=== PATIENT | female | born 1975 | race Caucasian/White ===

== ENCOUNTER → 2017-08-31 | Outpatient (CLI) | payer OTHER | END | disposition home or self-care (01) | LOC: RAD 10:15 | DX: S22.058D Other fracture of T5-T6 vertebra, subsequent encounter for fracture with routine healing (principal); M51.44 Schmorl's nodes, thoracic region; M41.85 Other forms of scoliosis, thoracolumbar region; M54.5 Low back pain; X58.XXXD Exposure to other specified factors, subsequent encounter | CPT/HCPCS: 72072; 72100 ==

== ENCOUNTER 2019-01-21 23:59 | Emergency (ER) | payer BC, OTHER ==
[~2019-01-21] VITALS: Ht 165.1 cm; Wt 51.3 kg
[~2019-01-21 23:59] MED LIST: CLON0.5T PO; CLON1TAB PO; DOCU-109 PO; DULO60CA6 PO; ESTR1.25 PO; ESTR1TAB15 PO; FENT1PAT13 TD; HYDR-2765 PO; IBUP200T44 PO; LAMO25TA5 PO; LEXAPRO20 MG PO; LIDO30CR TP; MELO15TA23 PO; MOME13HF IH; OXYC10TA46 PO; OXYC1TAB22 PO; POLY17PO29 PO; TIZA2CAP PO; TIZA4TAB2 PO
[2019-01-22 00:32] VITALS: BP 104/67
--- NOTE | 2019-01-22 00:38 | PHYS DOC ---
Past Medical History Past Medical History: Anxiety, Arthritis, Depression, Migraines, Other Additional Past Medical Histor: endometriosis, chronic back pain Past Surgical History: Hysterectomy, Tonsillectomy, Other Additional Past Surgical Histo: exp lap x 8, sinus, Alcohol Use: None Drug Use: Marijuana Adult General Chief Complaint Chief Complaint: HEADACHE HPI HPI Patient is a 43 year old female who presents with chronic migraine headaches and states she had a migraine headache last week. Patient states that last week she had gotten dizzy when she stood up and she fell forward, hitting her head on a door jam but didn't lose consciousness and she didn't start vomiting. Patient states that the headache has continued but tonight at 2000 headache worsened and on the right side of her face and head she has throbbing pain and tingling. Patient states this feels worse than her usual migraine headaches. Patient states she has some light sensitivity but no nausea or vomiting at this time. Patient rates her pain a 10 out of 10 and she is very tearful. Review of Systems Review of Systems Eyes: Denies change in visual acuity, redness, or eye pain. Light sensitivity [] Neurologic: headache, tingling to right side of face, denies focal weakness or sensory changes [] All other systems were reviewed and found to be within normal limits, except as documented in this note. Current Medications Current Medications Current Medications Medications (Trade) Dose Ordered Sig/Lele Start Time Stop Time Status Last Admin Dose Admin Diphenhydramine HCl (Benadryl) 25 mg 1X ONCE 01/22/19 01:00 01/22/19 01:01 DC 01/22/19 00:49 25 MG Prochlorperazine Edisylate (Compazine) 10 mg 1X ONCE 01/22/19 01:00 01/22/19 01:01 DC 01/22/19 00:49 10 MG Sumatriptan Succinate (Imitrex) 6 mg 1X ONCE 01/22/19 02:15 01/22/19 02:16 Allergies Allergies Allergies Coded Allergies Type Severity Reaction Last Updated Verified ciprofloxacin Allergy Intermediate Rash 03/07/15 Yes codeine Allergy Intermediate Itching 03/07/15 Yes meperidine Allergy Intermediate Increases blood pressure 03/07/15 Yes Physical Exam Physical Exam Constitutional: Well developed, well nourished, no acute distress, non-toxic appearance. [] HENT: Normocephalic, atraumatic, bilateral external ears normal, oropharynx moist, no oral exudates, nose normal. [] Eyes: PERRLA, EOMI, conjunctiva normal, no discharge. [] Neck: Normal range of motion, no tenderness, supple, no stridor. [] Skin: Warm, dry, no erythema, no rash. [] Neurologic: Alert and oriented X 3, normal motor function, normal sensory function, no focal deficits noted. [] Psychologic: Affect normal, judgement normal, mood normal. [] Current Patient Data Vital Signs Vital Signs Date Time Temp Pulse Resp B/P (MAP) Pulse Ox O2 Delivery O2 Flow Rate FiO2 01/22/19 00:32 97.9 90 16 104/67 (79 98 Room Air 97.9 Lab Values Laboratory Tests Test 01/22/19 00:41 POC Urine HCG, Qualitative Hcg negative (Negative) EKG EKG [] Radiology/Procedures Radiology/Procedures [] Impressions: [facility] [address] [place], [place] [id number] IMAGING REPORT Signed PATIENT: SHERMAN LAURENT ACCOUNT: [id number] : 1975 LOCATION: ER AGE: 43 SEX: F EXAM STATUS: REG ER ORD. PHYSICIAN: SIVA REID APRN REASON: headache PROCEDURE: CT HEAD WO CONTRAST STUDY: CT head without contrast INDICATION: Headache. COMPARISON: None. TECHNIQUE: Axial CT imaging through the head without the use of intravenous contrast. Sagittal and coronal reformats were obtained. One or more of the following individualized dose reduction techniques were utilized for this examination: 1. Automated exposure control 2. Adjustment of the mA and/or kV according to patient size 3. Use of iterative reconstruction technique. FINDINGS: Jarvis-white matter differentiation is maintained. No acute intracranial hemorrhage. No mass effect, midline shift or hydrocephalus. The calvarium is intact. No layering fluid within the visualized paranasal sinuses. Partially visualized changes suggestive of bilateral maxillary antrostomy. The mastoid air cells and middle ears are normally aerated. IMPRESSION: No acute intracranial abnormality by CT. Electronically signed by: JIMMY FERRIS MD (01/22/2019 2:09 AM) [facility] [place] DICTATED and SIGNED BY: JIMMY FERRIS MD DATE: 01/22/19208 Course & Med Decision Making Course & Med Decision Making Patient rates her pain a 10 out of 10. Alert and oriented. Speaks in full clear sentences. Ambulatory with a steady gait. 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 PERRLA. 0200: Patient is sleeping upon walking into room. Patient states her headache is better but starting to come back. I have ordered Imitrex. Dragon Disclaimer Dragon Disclaimer This electronic medical record was generated, in whole or in part, using a voice recognition dictation system. NIHSS Stroke Scale NIH Stroke Scale: NIH Stroke Scale Response (Comments) Value Level of Consciousness: 0 Alert/Responsive 0 LOC Questions: 0 Answers both correctly 0 LOC Commands: 0 Performs both tasks 0 Best Gaze: 0 Normal 0 Visual: 0 No visual loss 0 Facial Palsy: 0 Normal, symmetrical 0 Motor - Left Arm 0 No drift 0 Motor - Right Arm 0 No drift 0 Motor - Left Leg 0 No drift 0 Motor: Right Leg 0 No drift 0 Limb Ataxia: 0 Absent 0 Sensory: 0 No loss 0 Best Language: 0 Normal 0 Dysathria: 0 Normal 0 Extinction and Inattention: 0 Normal 0 Total 0 Departure Departure Impression: Primary Impression: Headache Disposition: 01 HOME, SELF-CARE Condition: STABLE Referrals: MARILYN OLIVERA (PCP) Patient Instructions: Migraine Headache Additional Instructions: Follow up with your primary care physician as soon as possible. Problem Qualifiers Primary Impression: Headache Headache type: unspecified Headache chronicity pattern: acute headache Intractability: not intractable Qualified Codes: R51 - Headache SIVA REID APRN Jan 22, 2019 00:38
[2019-01-22] MEDS ORDERED: diphenhydrAMINE 50 MG/ML VIAL IM ONE (01:00)
[2019-01-22] MEDS ORDERED: PROCHLORPERAZINE 10 MG/2 ML VIAL. IM ONE (01:00)
--- NOTE | 2019-01-22 02:12 | RAD ---
STUDY: CT head without contrast INDICATION: Headache. COMPARISON: None. TECHNIQUE: Axial CT imaging through the head without the use of intravenous contrast. Sagittal and coronal reformats were obtained. One or more of the following individualized dose reduction techniques were utilized for this examination: 1. Automated exposure control 2. Adjustment of the mA and/or kV according to patient size 3. Use of iterative reconstruction technique. FINDINGS: Jarvis-white matter differentiation is maintained. No acute intracranial hemorrhage. No mass effect, midline shift or hydrocephalus. The calvarium is intact. No layering fluid within the visualized paranasal sinuses. Partially visualized changes suggestive of bilateral maxillary antrostomy. The mastoid air cells and middle ears are normally aerated. IMPRESSION: No acute intracranial abnormality by CT. Electronically signed by: JIMMY FERRIS MD (01/22/2019 2:09 AM) [facility]
[2019-01-22] MEDS ORDERED: SUMAtriptan SUCC 6 MG/0.5 ML VIAL. SQ ONE (02:15)
== END 2019-01-22 02:18 | disposition home or self-care (01) ==
LOC: ER 23:59
DX: G43.909 Migraine, unspecified, not intractable, without status migrainosus (principal); R42 Dizziness and giddiness; F41.9 Anxiety disorder, unspecified; M19.90 Unspecified osteoarthritis, unspecified site; F32.9 Major depressive disorder, single episode, unspecified; G89.29 Other chronic pain; Z90.710 Acquired absence of both cervix and uterus; Z90.89 Acquired absence of other organs; Z88.1 Allergy status to other antibiotic agents; Z88.5 Allergy status to narcotic agent; Z88.8 Allergy status to other drugs, medicaments and biological substances
CPT/HCPCS: 70450; 81025; 96372; 99284; J0780; J1200; J3030

== ENCOUNTER 2020-04-04 10:52 | Emergency (ER) | payer BC ==
[~2020-04-04] VITALS: Ht 165.1 cm; Wt 53.8 kg
[~2020-04-04 10:52] MED LIST changes: +ESTR-113 PO; -ESTR1TAB15 PO
[2020-04-04 10:56] VITALS: BP 115/74
[2020-04-04] MEDS: IV RINGERS,LACTATED 500ML 500 ML IV ONE (11:38)
[2020-04-04] MEDS: ONDANSETRON PF 4 MG/2 ML VIAL. IVP ONE (11:38)
[2020-04-04] MEDS: MORPHINE SULFATE 10 MG/ML VIAL. IV ONE (11:38)
--- NOTE | 2020-04-04 11:40 | ED.ADGEN ---
Past Medical History Past Medical History: Anxiety, Arthritis, Depression, Migraines, Pancreatitis, Other Additional Past Medical Histor: endometriosis, chronic back pain Past Surgical History: Hysterectomy, Tonsillectomy, Other Additional Past Surgical Histo: exp lap x 8, sinus, Smoking Status: Former Smoker Alcohol Use: None Drug Use: Marijuana General Adult EDM: Chief Complaint: ABDOMINAL PAIN HPI: HPI: Patient is a 44 year old female coming in for evaluation of epigastric pain. Patient has a history of pancreatitis and was hospitalized to [facility] over the summer. Patient states the pain is been getting worse over the past 10 days but the past 2 to 3 days is been difficult to tolerate. She saw her surgeon prior to arrival (sent her to the ER) who suspects she has dysfunction of the sphincter of Oddi. Had a cholecystectomy a couple of years ago. 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 Has had nausea and vomiting, has a baseline loose stools due to IBS. She denies any recent fever, cough, loss of taste or smell, or any other Covid symptoms Review of Systems: Review of Systems: Negative except for HPI Current Medications: Current Medications Medications (Trade) Dose Ordered Sig/Lele Start Time Stop Time Status Last Admin Dose Admin Diphenhydramine HCl (Benadryl) 50 mg 1X ONCE 04/04/20 14:15 04/04/20 14:16 DC 04/04/20 15:46 50 MG Haloperidol Lactate (Haldol Inj) 5 mg 1X ONCE 04/04/20 14:15 04/04/20 14:16 DC 04/04/20 15:47 5 MG Iohexol (Omnipaque 300 Mg/ml) 75 ml 1X ONCE 04/04/20 12:00 04/04/20 12:01 DC 04/04/20 12:09 75 ML Morphine Sulfate (Morphine Sulfate) 5 mg 1X ONCE 04/04/20 11:30 04/04/20 11:31 DC 04/04/20 11:38 5 MG Multi-Ingredient Mouthwash/Gargle (Gi Cocktail) 20 ml 1X ONCE 04/04/20 12:45 04/04/20 12:46 DC 04/04/20 13:12 20 ML Ondansetron HCl (Zofran) 4 mg 1X ONCE 04/04/20 11:30 04/04/20 11:31 DC 04/04/20 11:38 4 MG Ringer's Solution 500 ml @ 500 mls/hr 1X ONCE 04/04/20 11:30 04/04/20 12:29 DC 04/04/20 11:38 500 MLS/HR Allergies: Allergies: Allergies Coded Allergies Type Severity Reaction Last Updated Verified ciprofloxacin Allergy Intermediate Rash 03/07/15 Yes codeine Allergy Intermediate Itching 03/07/15 Yes meperidine Allergy Intermediate Increases blood pressure 03/07/15 Yes Physical Exam: PE: Constitutional: Well developed, well nourished, moderate distress HENT: Normocephalic, atraumatic, bilateral external ears normal, oropharynx moist, no oral exudates, nose normal. [] Eyes: PERRLA, EOMI, conjunctiva normal, no discharge. [] Neck: Normal range of motion, no tenderness, supple, no stridor. [] Cardiovascular:Heart rate regular rhythm, no murmur [] Lungs & Thorax: Bilateral breath sounds clear to auscultation [] Abdomen: Bowel sounds normal, soft, epigastric tenderness with guarding, no rebound, no tenderness in lower abdomen Skin: Warm, dry, no erythema, no rash. [] No ecchymosis Back: No tenderness, no CVA tenderness. [] Extremities: No tenderness, no cyanosis, no clubbing, ROM intact, no edema. [] Neurologic: Alert and oriented X 3, normal motor function, normal sensory function, no focal deficits noted. [] Psychologic: Affect normal, judgement normal, mood normal. [] Current Patient Data: Labs: Laboratory Tests Test 04/04/20 10:54 04/04/20 11:02 04/04/20 11:10 Urine Collection Type Unknown Urine Color Mandy Urine Clarity Clear Urine pH 6.0 (<5.0-8.0) Urine Specific Orchard >=1.030 (1.000-1.030) Urine Protein Negative mg/dL (NEG-TRACE) Urine Glucose (UA) Negative mg/dL (NEG) Urine Ketones (Stick) Negative mg/dL (NEG) Urine Blood Negative (NEG) Urine Nitrite Negative (NEG) Urine Bilirubin Small (NEG) Urine Urobilinogen Dipstick 1.0 mg/dL (0.2 mg/dL) Urine Leukocyte Esterase Negative (NEG) Urine RBC 0 /HPF (0-2) Urine WBC 0 /HPF (0-4) Urine Squamous Epithelial Cells Occ /LPF Urine Bacteria 0 /HPF (0-FEW) Urine Mucus Marked /LPF Urine Opiates Screen Pos (NEG) Urine Methadone Screen Neg (NEG) Urine Barbiturates Neg (NEG) Urine Phencyclidine Screen Neg (NEG) Urine Amphetamine/Methamphetamine Neg (NEG) Urine Benzodiazepines Screen Neg (NEG) Urine Cocaine Screen Neg (NEG) Urine Cannabinoids Screen Pos (NEG) Urine Ethyl Alcohol Neg (NEG) POC Urine HCG, Qualitative Hcg negative (Negative) White Blood Count 4.4 x10^3/uL (4.0-11.0) Red Blood Count 4.25 x10^6/uL (3.50-5.40) Hemoglobin 12.9 g/dL (12.0-15.5) Hematocrit 37.7 % (36.0-47.0) Mean Corpuscular Volume 89 fL (79-100) Mean Corpuscular Hemoglobin 30 pg (25-35) Mean Corpuscular Hemoglobin Concent 34 g/dL (31-37) Red Cell Distribution Width 13.5 % (11.5-14.5) Platelet Count 313 x10^3/uL (140-400) Neutrophils (%) (Auto) 57 % (31-73) Lymphocytes (%) (Auto) 35 % (24-48) Monocytes (%) (Auto) 6 % (0-9) Eosinophils (%) (Auto) 1 % (0-3) Basophils (%) (Auto) 1 % (0-3) Neutrophils # (Auto) 2.5 x10^3/uL (1.8-7.7) Lymphocytes # (Auto) 1.5 x10^3/uL (1.0-4.8) Monocytes # (Auto) 0.3 x10^3/uL (0.0-1.1) Eosinophils # (Auto) 0.0 x10^3/uL (0.0-0.7) Basophils # (Auto) 0.0 x10^3/uL (0.0-0.2) Sodium Level 143 mmol/L (136-145) Potassium Level 3.7 mmol/L (3.5-5.1) Chloride Level 104 mmol/L (98-107) Carbon Dioxide Level 29 mmol/L (21-32) Anion Gap 10 (6-14) Blood Urea Nitrogen 9 mg/dL (7-20) Creatinine 0.8 mg/dL (0.6-1.0) Estimated GFR (Cockcroft-Gault) 77.9 BUN/Creatinine Ratio 11 (6-20) Glucose Level 110 mg/dL (70-99) H Lactic Acid Level 1.7 mmol/L (0.4-2.0) Calcium Level 9.4 mg/dL (8.5-10.1) Total Bilirubin 0.3 mg/dL (0.2-1.0) Aspartate Amino Transferase (AST) 13 U/L (15-37) L Alanine Aminotransferase (ALT) 16 U/L (14-59) Alkaline Phosphatase 87 U/L (46-116) Troponin I Quantitative < 0.017 ng/mL (0.000-0.055) Total Protein 7.2 g/dL (6.4-8.2) Albumin 4.2 g/dL (3.4-5.0) Albumin/Globulin Ratio 1.4 (1.0-1.7) Lipase 243 U/L (73-393) Laboratory Tests 04/04/20 11:10 Laboratory Tests 04/04/20 11:10 Vital Signs: Vital Signs Date Time Temp Pulse Resp B/P (MAP) Pulse Ox O2 Delivery O2 Flow Rate FiO2 04/04/20 10:56 99.1 105 18 115/74 (88) 99 Room Air 99.1 EKG: EKG: Normal sinus rhythm, heart rate 75, no ectopy, normal intervals, normal axis, no ST elevation or depression [] Heart Score: Risk Factors: Risk Factors: DM, Current or recent (<one month) smoker, HTN, HLP, family history of CAD, obesity. Risk Scores: Score 0 - 3: 2.5% MACE over next 6 weeks - Discharge Home Score 4 - 6: 20.3% MACE over next 6 weeks - Admit for Clinical Observation Score 7 - 10: 72.7% MACE over next 6 weeks - Early Invasive Strategies Radiology/Procedures: Radiology/Procedures: Exam: CT abdomen/pelvis with intravenous contrast Indication: Pancreatitis Comparison: CT abdomen and pelvis 08/06/2015 Technique: Helical CT imaging performed of the abdomen and pelvis after the intravenous administration of 75 mL Omnipaque 300 intravenous contrast. Sagittal and coronal reformats were obtained. One or more of the following individualized dose reduction techniques were utilized for this examination: 1. Automated exposure control 2. Adjustment of the mA and/or kV according to patient size 3. Use of iterative reconstruction technique. Findings: Lower chest: Lung bases are clear. Heart is normal in size. Liver: Normal. Gallbladder/Biliary Tree: Gallbladder surgically absent. Bile ducts are normal. Pancreas: The pancreas is homogeneous in appearance. There is no peripancreatic fluid. No pancreatic duct dilatation or calcifications. Spleen: Normal. Adrenal Glands: Normal. Kidneys/Ureters/Bladder: Normal. Reproductive Organs: The uterus is absent. No adnexal mass. Stomach, small bowel, and colon: The stomach and small bowel are normal. There are new surgical changes of the ascending colon. Mild wall thickening in the sigmoid colon and rectum, slightly improved from prior exam. Vasculature: Abdominal aorta and inferior vena cava are normal. Lymph Nodes: No lymphadenopathy. Peritoneum and retroperitoneum: No free fluid or free air. Bones: Small sclerotic focus in the right ischial tuberosity is unchanged from 2016. No acute osseous abnormality or new bone lesion. Impression: 1. No CT evidence of acute pancreatitis or other acute abnormality. 2. New surgical changes of the right colon. 3. Mild wall thickening of the sigmoid colon and rectum, similar to 2016. [] Course & Med Decision Making: Course & Med Decision Making Pertinent Labs and Imaging studies reviewed. (See chart for details) No change in symptoms with GI cocktail and morphine. UDS shows marijuana use, and patient admits to regular use of edibles. Haldol and diphenhydramine given with solution of symptoms. Counseled patient on capsaicin use, hot showers and marijuana cessation [] Dragon Disclaimer: Louann Disclaimer: This electronic medical record was generated, in whole or in part, using a voice recognition dictation system. Departure Departure Impression: Primary Impression: Cannabinoid hyperemesis syndrome Disposition: 01 DC HOME SELF CARE/HOMELESS Condition: IMPROVED Referrals: UNKNOWN PCP NAME (PCP) Additional Instructions: Discontinue cannabis use, may consider substituting CBD oil. If symptoms recur take a hot shower or apply capsaicin cream to your abdomen. ROD EARL MD Apr 04, 2020 11:40
[2020-04-04 11:53] LABS: BASO % 1 % (0-3); EOS % 1 % (0-3); HEMATOCRIT 37.7 % (36.0-47.0); HEMOGLOBIN 12.9 g/dL (12.0-15.5); LYMPH # 1.5 x10^3/uL (1.0-4.8); LYMPH % 35 % (24-48); MEAN CORPUSCULAR HEMOGLOBIN 30 pg (25-35); MEAN CORPUSCULAR HGB CONC 34 g/dL (31-37); MEAN CORPUSCULAR VOLUME 89 fL (79-100); MONO # 0.3 x10^3/uL (0.0-1.1); MONO % 6 % (0-9); NEUT # 2.5 x10^3/uL (1.8-7.7); NEUT % 57 % (31-73); PLATELET COUNT 313 x10^3/uL (140-400); RED BLOOD COUNT 4.25 x10^6/uL (3.50-5.40); RED CELL DISTRIBUTION WIDTH 13.5 % (11.5-14.5); WHITE BLOOD COUNT 4.4 x10^3/uL (4.0-11.0)
[2020-04-04 11:54] LABS: BILIRUBIN,URINE SMALL (NEG); CLARITY,URINE CLEAR; COLOR,URINE AMBER; NITRITE,URINE NEGATIVE (NEG); PROTEIN,URINE NEGATIVE (NEG-TRACE)
[2020-04-04 11:56] LABS: CALCIUM 9.4 mg/dL (8.5-10.1); CREATININE 0.8 mg/dL (0.6-1.0); GFR 77.9; POTASSIUM 3.7 mmol/L (3.5-5.1)
--- NOTE | 2020-04-04 11:57 | EKG ---
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
[2020-04-04 12:03] LABS: ALBUMIN 4.2 g/dL (3.4-5.0); ALBUMIN/GLOBULIN RATIO 1.4 (1.0-1.7); TOTAL BILIRUBIN 0.3 mg/dL (0.2-1.0); TOTAL PROTEIN 7.2 g/dL (6.4-8.2)
[2020-04-04 12:09] LABS: BACTERIA,URINE 0 /HPF (0-FEW); RBC,URINE 0 /HPF (0-2); WBC,URINE 0 /HPF (0-4)
[2020-04-04] MEDS: IOHEXOL 300 MG/ML 100ML VIAL. IV ONE (12:09)
[2020-04-04 12:44] LABS: BARBITURATES NEG (NEG); BENZODIAZEPINES NEG (NEG); CANNABINOIDS POS (NEG); COCAINE NEG (NEG); METHADONE NEG (NEG); OPIATES POS (NEG); PHENCYCLIDINE NEG (NEG)
[2020-04-04 12:45] LABS: AMPHETAMINE/METHAMPHETAMINE NEG (NEG)
--- NOTE | 2020-04-04 12:51 | RAD ---
Exam: CT abdomen/pelvis with intravenous contrast Indication: Pancreatitis Comparison: CT abdomen and pelvis 08/06/2015 Technique: Helical CT imaging performed of the abdomen and pelvis after the intravenous administratio n of 75 mL Omnipaque 300 intravenous contrast. Sagittal and coronal reformats were obtained. One or more of the following individualized dose reduction techniques were utilized for this examinat ion: 1. Automated exposure control 2. Adjustment of the mA and/or kV according to patient size 3. Use of iterative reconstruction technique. Findings: Lower chest: Lung bases are clear. Heart is normal in size. Liver: Normal. Gallbladder/Biliary Tree: Gallbladder surgically absent. Bile ducts are normal. Pancreas: The pancreas is homogeneous in appearance. There is no peripancreatic fluid. No pancreatic duct dilatation or calcifications. Spleen: Normal. Adrenal Glands: Normal. Kidneys/Ureters/Bladder: Normal. Reproductive Organs: The uterus is absent. No adnexal mass. Stomach, small bowel, and colon: The stomach and small bowel are normal. There are new surgical stanley es of the ascending colon. Mild wall thickening in the sigmoid colon and rectum, slightly improved fr om prior exam. Vasculature: Abdominal aorta and inferior vena cava are normal. Lymph Nodes: No lymphadenopathy. Peritoneum and retroperitoneum: No free fluid or free air. Bones: Small sclerotic focus in the right ischial tuberosity is unchanged from 2016. No acute osseous abnormality or new bone lesion. Impression: 1. No CT evidence of acute pancreatitis or other acute abnormality. 2. New surgical changes of the right colon. 3. Mild wall thickening of the sigmoid colon and rectum, similar to 2016. Electronically signed by: Linda Torres MD (04/04/2020 1:34 PM) [id number]
[2020-04-04] MEDS: LIDO:MAALOX 1:1 20 ML SINGLE DOSE. SWSW ONE (13:12)
[2020-04-04] MEDS: diphenhydrAMINE 50 MG/ML VIAL IVP ONE (15:46)
[2020-04-04] MEDS: HALOPERIDOL LACTATE 5 MG/ML VIAL. IVP ONE (15:47)
== END 2020-04-04 17:53 | disposition home or self-care (01) ==
LOC: ER 10:52
DX: R11.2 Nausea with vomiting, unspecified (principal); F12.90 Cannabis use, unspecified, uncomplicated; R10.13 Epigastric pain; F41.9 Anxiety disorder, unspecified; M19.90 Unspecified osteoarthritis, unspecified site; F32.9 Major depressive disorder, single episode, unspecified; G43.909 Migraine, unspecified, not intractable, without status migrainosus; K86.1 Other chronic pancreatitis; G89.29 Other chronic pain; Z90.89 Acquired absence of other organs; Z90.710 Acquired absence of both cervix and uterus; Z98.890 Other specified postprocedural states; Z87.891 Personal history of nicotine dependence; Z88.1 Allergy status to other antibiotic agents; Z88.5 Allergy status to narcotic agent; Z88.8 Allergy status to other drugs, medicaments and biological substances
CPT/HCPCS: 36415; 74177; 80053; 80307; 81001; 81025; 83605; 83690; 84484; 85025; 93005; 96361; 96374; 96375; 99285; J1200; J1630; J2270; J2405; J7120; Q9967

== ENCOUNTER → 2020-04-18 | Outpatient (CLI) | payer BC ==
[2020-04-04 10:56] VITALS: BP 115/74
[~2020-04-18] MED LIST changes: +BACL10TA PO; +LAMO200T3 PO; -LIDO30CR TP; +LIDO30CR2 TP; +ONDA4TAB7 PO; +OXYC1TAB15 PO; +PANT40TA77 PO; +PREG-9 PO; +SUMA50TA3 PO
--- NOTE | 2020-04-19 09:02 | KCIC ---
MRI of the abdomen without contrast to include a MRCP 04/18/2020 CLINICAL HISTORY: Epigastric pain. Acute pancreatitis. History of cholecystectomy. TECHNIQUE: Unenhanced T2-weighted axial and coronal fat saturated T2-weighted axial, diffusion-weight ed axial and inversion phase T1-weighted axial images of the abdomen were obtained. Additionally thin section fat saturated T2-weighted coronal images of the abdomen were obtained. Multiplanar 3-D MIP r econstructed images of the biliary system were obtained for an MRCP. FINDINGS: Comparison is made to the patient's CT scan of the abdomen dated 04/04/2020. The liver, spleen, pancreas, adrenal glands and kidneys are within normal limits. The abdominal aorta tapers normally. There is no evidence of bowel obstruction. No free fluid is seen . MRCP images demonstrate nonvisualization of the gallbladder consistent with a cholecystectomy. The le ft and right hepatic ducts, common hepatic duct, cystic duct remnant, common bile duct and main pancr eatic duct are normal in caliber. No filling defect is seen. Minimal S-shaped curvature of the thoracolumbar spine is seen. IMPRESSION: Post cholecystectomy. Otherwise negative study. Electronically signed by: Michi Calles MD (04/19/2020 8:59 AM) [id number]
== END ==
LOC: KCIC MRI 10:06
PROVIDERS: ATTEND Surgery
DX: R10.13 Epigastric pain (principal); Z90.49 Acquired absence of other specified parts of digestive tract
CPT/HCPCS: 74181

== ENCOUNTER → 2020-06-22 | Outpatient (CLI) | payer BC ==
[~2020-06-22] MED LIST changes: +LIDO30CR TP; -LIDO30CR2 TP; -OXYC1TAB15 PO
== END ==
LOC: LAB 14:03
PROVIDERS: ATTEND Surgery
DX: Z01.812 Encounter for preprocedural laboratory examination (principal); K43.2 Incisional hernia without obstruction or gangrene; Z20.822 Contact with and (suspected) exposure to COVID-19
CPT/HCPCS: U0003

== ENCOUNTER 2020-06-27 06:19 | Day surgery (SDC) | payer BC ==
[~2020-06-27 06:19] MED LIST changes: +HYDROmorphone 2 MG/ML VIAL IVP PRN; +IV RINGERS,LACTATED 1000ML 1,000 ML IV SCH; +MORPHINE SULFATE 2 MG/ML VIAL. IVP PRN; +PROCHLORPERAZINE 10 MG/2 ML VIAL. IVP PRN; +fentaNYL PF VIAL 100 MCG/2 ML VIAL IVP PRN
[2020-06-27] MEDS ORDERED: BUPIVACAINE-EPI 0.25% 30 ML VIAL KIT. ONE (07:10)
[2020-06-27] MEDS ORDERED: ACETAMINOPHEN 500 MG TABLET PO ONE (07:15)
[2020-06-27] MEDS ORDERED: SCOPOLAMINE 1.5MG PATCH. TD ONE (07:15)
[2020-06-27] MEDS ORDERED: ROCURONIUM 50 MG/5 ML VIAL. ONE (07:34)
[2020-06-27] MEDS ORDERED: fentaNYL PF VIAL 250 MCG/5 ML VIAL ONE (07:34)
[2020-06-27] MEDS ORDERED: MIDAZOLAM HCL/PF 2 MG/2 ML VIAL. ONE (07:34)
--- NOTE | 2020-06-27 08:46 | PDOC4 ---
Operative Note Operative Note Date: June 272020 at 843 Preoperative diagnosis: Right lower quadrant abdominal hernia Postoperative diagnosis: Same Procedure: Robotic assisted laparoscopic ventral hernia repair with mesh Surgeon: Andrew Specimen: None Dictation: Patient is a 45-year-old female who has right lower quadrant incisional hernia from previous open appendectomy scar. Procedure of robotic assisted laparoscopic ventral hernia repair with mesh was explained to the patient detail risk benefits were also discussed including bleeding infection injury to intra-abdominal contents possible necessitating further open operations alternatives to this procedure also discussed with the patient who seemed to understand and gave both verbal and written consent to have the procedure performed. Patient was taken to the operating room placed in the supi ne position general anesthesia was initiated once patient was sleeping intubated her abdomen was prepped and draped usual sterile fashion using ChloraPrep. An area in the left upper quadrant was injected quarter percent Marcaine with epinephrine an incision was made 11 blade scalpel and a 5 mm Visiport was placed under direct visualization into the abdomen creating pneumoperitoneum once this was complete 8 mm da Osiel port was placed in the left midabdomen and an 8 mm da Osiel port was placed in the left lower abdomen and the 5 mm Visiport was changed out for an 8 mm da Osiel port in the left upper abdomen. The da Osiel robot was brought and docked all port sites to the surgeon went to the robotic console using a grasper and Endo Jeffery scissors the hernia contents were reduced. The fascial defect was then closed with a running V lock 2 oh nonabsorbable suture. Ventral light ST mesh was then placed over the hernia defect this was sewn into place with a running 2 OV lock absorbable suture. Sutures removed from the abdomen the da Osiel robot was undocked from all port sites ports were all moved and the pneumoperitoneum reduced port sites were all closed with 4 subcuticular Monocryl Mastisol Steri-Strips and island dressings were applied. Patient was awakened and extubated in the operating room taken to recovery in stable condition all sponge instrument needle counts listed as corre ct estimated blood loss 5 mL JAYA BARNHART MD Jun 27, 2020 08:46
[2020-06-27] MEDS ORDERED: PROPOFOL 10 MG/ML (20ML) VIAL. IV ONE (08:47)
[2020-06-27] MEDS ORDERED: DEXAMETHASONE SOD PHOS 20 MG/5 ML VIAL. ONE (08:47)
[2020-06-27] MEDS ORDERED: SEVOFLURANE 61 TO 120 MINUTES. IH ONE (08:47)
[2020-06-27] MEDS ORDERED: LIDOCAINE 2% PF 5 ML VIAL. ONE (08:47)
[2020-06-27] MEDS ORDERED: ONDANSETRON PF 4 MG/2 ML VIAL. ONE (08:47)
[2020-06-27] MEDS ORDERED: NEOSTIGMINE METHYLSULFATE 5 MG/5 ML SYRINGE. ONE (08:48)
--- NOTE | 2020-06-27 08:48 | DISCH ---
DISCHARGE INSTRUCTIONS Condition on Discharge Condition on Discharge: Stable Activity After Discharge Activity Instructions for Disc: Avoid exertion Other activity instructions: No lifting more than 20 pounds for 2 weeks Diet after Discharge Diet after Discharge: Regular Diet Texture: Regular Wound Incision Care Other wound/incision instructi: May shower in 24 hours Contacting the after DC Call your doctor for: If your condition worsens Follow-Up Follow up with: Dr. Barnhart in 2 weeks JAYA BARNHART MD Jun 27, 2020 08:48
[2020-06-27] MEDS ORDERED: GLYCOPYRROLATE 1 MG/5 ML VIAL. ONE (08:57)
[2020-06-27] MEDS ORDERED: fentaNYL PF VIAL 100 MCG/2 ML VIAL ONE (09:07)
[2020-06-27] MEDS ORDERED: OXYC1TAB15 PO (09:10)
[2020-06-27] MEDS: fentaNYL PF VIAL 100 MCG/2 ML VIAL IVP PRN ×2 (09:10→09:19)
[2020-06-27] MEDS ORDERED: fentaNYL PF VIAL 100 MCG/2 ML VIAL IVP PRN (09:15)
[2020-06-27] MEDS ORDERED: IV RINGERS,LACTATED 1000ML 1,000 ML IV SCH (09:15)
[2020-06-27] MEDS ORDERED: oxyCODONE/APAP 5/325 1 TAB TABLET PO ONE ×2 (09:15)
[2020-06-27] MEDS ORDERED: PROCHLORPERAZINE 10 MG/2 ML VIAL. IVP PRN (09:15)
[2020-06-27] MEDS ORDERED: MORPHINE SULFATE 2 MG/ML VIAL. IVP PRN (09:15)
[2020-06-27] MEDS: HYDROmorphone 2 MG/ML VIAL IVP PRN ×3 (09:30→10:05)
[2020-06-27 10:12] VITALS: BP 134/80
== END 2020-06-27 10:57 | disposition home or self-care (01) ==
LOC: SURG 06:19
PROVIDERS: ATTEND Surgery
DX: K45.8 Other specified abdominal hernia without obstruction or gangrene (principal); K21.9 Gastro-esophageal reflux disease without esophagitis; M19.90 Unspecified osteoarthritis, unspecified site; F41.9 Anxiety disorder, unspecified; F32.9 Major depressive disorder, single episode, unspecified; Z90.710 Acquired absence of both cervix and uterus; Z98.890 Other specified postprocedural states; Z79.899 Other long term (current) drug therapy; Z90.49 Acquired absence of other specified parts of digestive tract; Z87.891 Personal history of nicotine dependence; Z88.0 Allergy status to penicillin; Z88.8 Allergy status to other drugs, medicaments and biological substances; Z88.1 Allergy status to other antibiotic agents; Z88.5 Allergy status to narcotic agent; Z82.49 Family history of ischemic heart disease and other diseases of the circulatory system
CPT/HCPCS: 49652; J1100; J1170; J1956; J2250; J2405; J2704; J2710; J3010; J3490; S2900; A4223; A4364; A4657; A4930; A6219; C1781